=== PATIENT | female | born 1980 | race Caucasian/White ===

== ENCOUNTER → 2018-09-11 | Outpatient (CLI) | payer OTHER ==
[~2018-09-11] MED LIST: BIRTH CONTROL; CIPR500 PO; Cyclobenzaprine5 MG PO; Esgic Tablet1 EACH PO; HYDACE5 PO; MECL25 PO; METPRE4DP PO; Norco 5-325 Ta1 EACH PO; ONDA4ODT MM; Zofran Odt4 MG SL
[2018-09-15 14:08] LABS: HPV 16 Negative (Negative); HPV 18 Negative (Negative); HPV OTHER HR TYPES Negative (Negative)
== END | disposition home or self-care (01) ==
LOC: LAB SHORT 14:21 → LAB 14:21
PROVIDERS: Nurse Practitioner Women's Health
DX: Z12.4 Encounter for screening for malignant neoplasm of cervix (principal)
CPT/HCPCS: 87624; G0123

== ENCOUNTER 2021-02-26 10:26 | Emergency (ER) | payer OTHER | END 2021-02-26 10:43 | disposition home or self-care (01) | LOC: ER 10:26 | DX: U07.1 COVID-19 (principal); G43.909 Migraine, unspecified, not intractable, without status migrainosus; Z79.899 Other long term (current) drug therapy | CPT/HCPCS: 99282 ==